=== PATIENT | female | born 1980 | race Two or more races ===

== ENCOUNTER 2024-07-31 14:11 | Emergency (ER) | payer OTHER, MEDICAID, SELFPAY ==
[2024-07-31] VITALS (14 sets, daily range): BP systolic 100–133; BP diastolic 50–84; PULSE 64–90; RESP 14–21; TEMP 36.7–36.9; O2SAT 98–100
--- NOTE | 2024-07-31 14:25 | PD.EDRME ---
Rapid Medical Screening Exam RME Arrival date/time: 07/31/24 14:11 44-year-old female presents to the emergency department today requesting blood transfusion patient reports that she was sent here by PCP for low hemoglobin patient has similar episodes in the past. Chief Complaint: General Adult/Misc Complain Time Seen by Provider: 07/31/24 14:12 Vital signs: Vital Signs Temperature 98.5 F 07/31/24 14:24 Pulse Rate 68 07/31/24 14:24 Respiratory Rate 18 07/31/24 14:24 Blood Pressure 113/77 07/31/24 14:24 Pulse Oximetry (%) 99 07/31/24 14:24 Oxygen Delivery Method Room Air 07/31/24 14:24
[2024-07-31 15:08] LABS: Basophils # (Auto) 0.1 Thou/mm3 (0.0-0.2); Basophils % (Auto) 1 % (0-2.5); Eosinophils # (Auto) 0.1 Thou/mm3 (0.0-0.5); Eosinophils % (Auto) 1 % (0-10); Hematocrit 24.7 % (36.0-46.0); Immature Granulocytes % (Auto) 0 % (0-0); Immature Granulocytes Auto 0.03 Thou/mm3 (0.00-0.00); Lymphocytes # (Auto) 2.6 Thou/mm3 (1.0-4.8); Lymphocytes % (Auto) 25 % (10-50); Mean Corpuscular HGB Conc 28.3 g/dl (31.0-37.0); Mean Corpuscular Volume 67 fL (80-100); Monocytes # (Auto) 0.7 Thou/mm3 (0.0-0.8); Monocytes % (Auto) 6 % (0-12); Neutrophils # (Auto) 7.1 Thou/mm3 (1.8-7.7); Neutrophils % (Auto) 67 % (37-80); Nucleated Red Blood Cell % 0 /100 WBC (0); Platelet Count 544 Thou/mm3 (140-440); RDW Standard Deviation 43.2 fL (36.4-46.3); Red Blood Count 3.68 Miln/mm3 (4.00-5.20); White Blood Count 10.6 Thou/mm3 (3.6-11.0)
[2024-07-31 15:14] LABS: Alanine Aminotransferase 30 U/L (10-49); Albumin/Globulin Ratio 1.9 (1.2-2.2); Alkaline Phosphatase 102 U/L (46-116); Anion Gap 7 (7-16); Aspartate Amino Transferase 33 U/L (0-34); BUN/Creatinine Ratio 15 Ratio (12-20); Bilirubin,Total 0.5 mg/dL (0.3-1.2); Blood Urea Nitrogen 9 mg/dL (9-23); Calcium 9.4 mg/dL (8.3-10.6); Calcium (Corrected) 9.4 mg/dL (8.5-10.1); Carbon Dioxide 25.7 mMol/L (20.0-31.0); Chloride 106 mMol/L (98-107); Creatinine (Component) 0.6 mg/dL (0.6-1.3); Estimated Creatinine Clearance 123.2 mL/min (>60); Globulin 2.7 gm/dL (2.3-3.5); Glucose 93 mg/dL (74-106); Osmolality,Calculated 276 (275-295); Potassium 3.6 mMol/L (3.4-5.1); Sodium 139 mMol/L (136-145); Total Protein 7.7 gm/dL (5.7-8.2); eGFR > 60 See Note
[2024-07-31 15:15] LABS: HCG,Qualitative Serum Negative; Partial Thromboplastin Time 24.5 Seconds (22.0-36.0); Prothrombin Time 11.4 Seconds (9.0-12.2)
--- NOTE | 2024-07-31 16:18 | EDNOTE_ITS ---
ED General RME/HPI General Chief complaint: General Adult/Misc Complain Stated complaint: SENT BY PCP FOR BLOOD TRANSFUSION Time Seen by Provider: 07/31/24 14:12 Arrival date/time: 07/31/24 14:11 RME / HPI RME / HPI narrative: 44-year-old female presents to the emergency department today requesting blood transfusion patient reports that she was sent here by PCP for low hemoglobin patient has similar episodes in the past. Patient told me that patient's been having heavy menstruation, having 7-day course of heavy menstruation.. Patient denies any dizziness denies any shortness of breath, denies any dyspnea on exertion. Patient denies any vomiting blood or blood in the stool. Patient also denies any changes to color of the stool. Currently taking iron supplement prescribed her PCP. Related Data Allergies Allergy/AdvReac Type Severity Reaction Status Date / Time NKA* Allergy Uncoded 07/31/24 14:12 Review of Systems Review of Systems Narrative Review of Systems: Review of system reviewed and within normal limits except mentioned in HPI ED Exam Narrative Physical exam: VITAL SIGNS: Reviewed. GENERAL APPEARANCE: Alert and interactive, follows commands, no acute distress, HEAD AND FACE: Non-traumatic. ENT: PERRL, pale conjunctiva eyelid no trauma, Mucous membrane moist. NECK: Supple, nontender, no nuchal rigidity. CHEST: No tenderness, no crepitus, no paradoxical movement, no retractions. LUNGS: Clear, well ventilated, symmetric, no rales, no wheezing, no ronchi, no stridor, good breath sounds bilaterally. HEART: Regular rate, regular rhythm, no murmur, no gallops. ABDOMEN: Soft, positive bowel sounds, nondistended, no guarding, nontender, no rebound, no masses, RECTAL: Deferred. GENITAL: Deferred. NEUROLOGICAL: Gross motor function intact sensory function intact, Appropriate for age. MUSCULOSKELETAL: low back nontender, full range of motion. EXTREMITIES: Nontender, full range of motion. SKIN: Color pale, dry, no rash, no lacerations, no abrasions, no contusions. LYMPHATICS: Deferred. Course Quality Measures none Orders Category Date Time Status Insert IV NOW Care 07/31/24 14:25 Active Transfuse,blood/blood products ONCE Care 07/31/24 16:17 Active Diet Regular Diet 07/31/24 Dinner Active CBC Stat Lab 07/31/24 14:40 Completed Comprehensive Metabolic Panel Stat Lab 07/31/24 14:40 Completed HCG,Qualitative Serum Stat Lab 07/31/24 14:40 Completed Partial Thromboplastin Time Stat Lab 07/31/24 14:40 Completed Path Review Blood Smear Stat Lab 07/31/24 14:40 Completed Prothrombin Time with INR Stat Lab 07/31/24 14:40 Completed Type and Screen Stat Lab 07/31/24 14:40 Completed prbc [Red Blood Cells] Stat Lab 07/31/24 14:40 Completed Vital Signs Vital signs: Vital Signs Temperature 98.5 F 07/31/24 14:24 Pulse Rate 68 07/31/24 14:24 Respiratory Rate 18 07/31/24 14:24 Blood Pressure 113/77 07/31/24 14:24 Pulse Oximetry (%) 99 07/31/24 14:24 Oxygen Delivery Method Room Air 07/31/24 14:24 MDM Patient data External records reviewed:: None Clinical information provided by:: patient Social determinants that could affect healthcare access:: none Patient has the following chronic illnesses:: History of menometrorrhagia How is presenting disease/condition affected by chronic disease/condition?: u neffected by Evaluation data The following diagnostics were reviewed and interpreted by me:: lab results Lab and/or radiology exams considered but not ordered:: None Interpretation Summary: Patient CBC was noted to be anemic, hemoglobin of 7.0 and hematocrit of 24.7 Medications Medications considered but not ordered:: None Medication administrations:: 2 units of packed RBC Consultations Consultation(s) initiated? (list below): No Diagnosis Differential Diagnosis ED Complaint MDM: Anemia, anemia secondary to menometrorrhagia, iron deficiency anemia Most likely diagnosis given after review of the tests above:: Anemia Admission Indicated Admission indicated?: not indicated Explain why admission is indicated or not indicated:: Stable Admission Request Was there a request for admission?: No Disposition Plan Disposition Plan: Discharge Discharge Attestation Discharge Attestation: The patient was given an opportunity to ask questions and understood the discharge instructions. Discharge instructions specifically effects, indications for sooner follow up or return to the emergency department, and the expected course of current diagnosis. Patient condition: Stable Medical Decision Making MDM Narrative MDM Narrative: 44-year-old female presents to the emergency department today requesting blood transfusion patient reports that she was sent here by PCP for low hemoglobin patient has similar episodes in the past. Patient told me that patient's been having heavy menstruation, having 7-day course of heavy menstruation.. Patient denies any dizziness denies any shortness of breath, denies any dyspnea on exertion. Patient denies any vomiting blood or blood in the stool. Patient also denies any changes to color of the stool. Currently taking iron supplement prescribed her PCP. Patient's CBC showed hemoglobin of 7.0, hematocrit of 24.7. Patient received 2 units of packed RBC with no posttransfusion reaction. Noted. Differential Diagnosis Differential Diagnosis: Anemia, anemia secondary to menometrorrhagia, iron deficiency anemia Lab Data 07/31/24 14:40 07/31/24 14:40 Labs: Lab Results 07/31/24 Range/Units 14:40 WBC 10.6 (3.6-11.0) Thou/mm3 RBC 3.68 L (4.00-5.20) Miln/mm3 Hgb 7.0 L (12.0-16.0) g/dL Hct 24.7 L (36.0-46.0) % MCV 67 L (80-100) fL MCH 19.0 L (25.0-35.0) pg MCHC 28.3 L (31.0-37.0) g/dl RDW Std Deviation 43.2 (36.4-46.3) fL Plt Count 544 H (140-440) Thou/mm3 Neut % (Auto) 67 (37-80) % Lymph % (Auto) 25 (10-50) % Taylor % (Auto) 6 (0-12) % Eos % (Auto) 1 (0-10) % Baso % (Auto) 1 (0-2.5) % Neut # (Auto) 7.1 (1.8-7.7) Thou/mm3 Lymph # (Auto) 2.6 (1.0-4.8) Thou/mm3 Taylor # (Auto) 0.7 (0.0-0.8) Thou/mm3 Eos # (Auto) 0.1 (0.0-0.5) Thou/mm3 Baso # (Auto) 0.1 (0.0-0.2) Thou/mm3 Immature Gran # (Auto) 0.03 H (0.00-0.00) Thou/mm3 Absolute Nucleated RBC 0.00 (0.00-0.00) Thou/mm3 Immature Gran % 0 (0-0) % Nucleated RBC % 0 (0) /100 WBC Smear Path Review Sent to Pathologist PT 11.4 (9.0-12.2) Seconds INR 1.0 (0.9-1.3) APTT 24.5 (22.0-36.0) Seconds Sodium 139 (136-145) mMol/L Potassium 3.6 (3.4-5.1) mMol/L Chloride 106 (98-107) mMol/L Carbon Dioxide 25.7 (20.0-31.0) mMol/L Anion Gap 7 (7-16) BUN 9 (9-23) mg/dL Creatinine 0.6 (0.6-1.3) mg/dL Estim Creat Clear Calc 123.2 (>60) mL/min eGFR > 60 (60 - ) See Note BUN/Creatinine Ratio 15 (12-20) Ratio Glucose 93 (74-106) mg/dL Calculated Osmolality 276 (275-295) Calcium 9.4 (8.3-10.6) mg/dL Corrected Calcium 9.4 (8.5-10.1) mg/dL Total Bilirubin 0.5 (0.3-1.2) mg/dL AST 33 (0-34) U/L ALT 30 (10-49) U/L Alkaline Phosphatase 102 (46-116) U/L Total Protein 7.7 (5.7-8.2) gm/dL Albumin 5.0 (3.5-5.0) gm/dL Globulin 2.7 (2.3-3.5) gm/dL Albumin/Globulin Ratio 1.9 (1.2-2.2) HCG, Qual Negative Blood Type O Positive Antibody Screen NEGATIVE Crossmatch See Detail Blood Bank Wristband ID Yes Discharge Plan Plan Patient Disposition: HOME (Self Care) Disposition Comment: stable Prescriptions/Referrals Referrals: Eduardo Rodriguez PA-C [Primary Care Provider] - In 1 week Problem List Clinical Impression: Anemia, Menometrorrhagia Patient/Caregiver Discharge Instructions Discharge Activity: activity as tolerated Education Materials: Anemia Additional Instructions: Thank you for the opportunity for serving you today. You are stable for discharged . You are advised to: Follow-up with your PCP in 1 to 2 days and ask for referral to [facility] regarding your menometrorrhagia Return to ED for worsening of symptoms Continue taking your ferrous/iron supplement as prescribed by your PCP Print Language: Malawian Stand Alone Forms: [facility] Award Info., Patient Portal Info Letter PA/[employer] Supervising Physician PA/[employer] Supervising Physician: MD Ashli
--- NOTE | 2024-07-31 17:36 | PC.NURSE ---
Pt tolerating transfusion w/o incident. VSS on tele, denies any adverse reaction symptoms
[2024-07-31 17:52] LABS: Path Review Blood Smear Sent to Pathologist
== END 2024-07-31 22:26 | disposition home or self-care (01) ==
PROVIDERS: Nurse Practitioner Primary Care; Emergency Provider Emergency Medicine; PCP Family Medicine
DX: D64.9 Anemia, unspecified (principal); N92.1 Excessive and frequent menstruation with irregular cycle
CPT/HCPCS: 36415; 36430; 80053; 84703; 85025; 85610; 85730; 86850; 86900; 86901; 86923; 99285; P9016